=== PATIENT | male | born 2000 | race Hispanic/Latino ===

== ENCOUNTER 2024-02-28 23:13 | Emergency (ER) | payer OTHER ==
[2024-02-28] MEDS ORDERED: LIDOCAINE 2% W/EPI 1:200,000 MPF 20 ML VIAL IM ONE (23:49)
[2024-02-28] MEDS ORDERED: TDAP (DIPHTH,PERTUSS(ACELL),TET VAC) 0.5 ML VIAL IMVAC ONE (23:50)
--- NOTE | 2024-02-29 01:48 | ER ---
Nurse's Notes [facility] Name: Delio Jaramillo Age: 24 yrs Sex: Male : 2000 Arrival Date: 02/28/2024 Time: 23:13 Bed 12 Private MD: Diagnosis: Laceration without foreign body of right wrist Presentation: 02/27 23:22 Chief complaint: Patient states: Laceration to right wrist. Pt states that he cut his cm10 wrist on some glass around 1840. Bleeding controlled at this time. pt reports numbness and tingling to 4th and 5th digit. Coronavirus screen: Client denies travel out of the [place] in the last 14 days. At this time, the client does not indicate any symptoms associated with coronavirus-19. Ebola Screen: Patient denies travel to an Ebola-affected area in the 21 days before illness onset. No symptoms or risks identified at this time. Complicating Factors: There are no complicating factors for this patient. Initial Sepsis Screen: Does the patient meet any 2 criteria? No. Patient's initial sepsis screen is negative. Does the patient have a suspected source of infection? No. Patient's initial sepsis screen is negative. Risk Assessment: Do you want to hurt yourself or someone else? Patient reports no desire to harm self or others. Onset of symptoms was February 28, 2024. 23:22 Method Of Arrival: Law Enforcement: [place] [employer] cm10 23:22 Acuity: FRANKY 4 cm10 Triage Assessment: 23:25 General: Appears in no apparent distress. comfortable, Behavior is calm, cooperative. cm10 Pain: Complains of pain in medial aspect of right hand. Neuro: No deficits noted. Level of Consciousness is awake, alert, obeys commands, Oriented to person, place, time, situation, Appropriate for age. Respiratory: No deficits noted. Airway is patent Respiratory effort is even, unlabored, Respiratory pattern is regular, symmetrical. Injury Description: Laceration sustained to medial aspect of right hand is 2.6 to 7.5 cm long, not bleeding. Historical: - Allergies: 23:25 SHELLFISH; cm10 - Home Meds: 23:25 None [Active]; cm10 - PMHx: 23:25 None; cm10 - PSHx: 23:25 None; cm10 - Immunization history:: Adult Immunizations up to date. - Infectious Disease History:: Denies. - Social history:: Smoking status: Patient denies any tobacco usage or history of. Screenin:26 [facility] ED Fall Risk Assessment (Adult) History of falling in the last 3 months, cm10 including since admission No falls in past 3 months (0 pts) Confusion or Disorientation No (0 pts) Intoxicated or Sedated No (0 pts) Impaired Gait No (0 pts) Mobility Assist Device Used No (0 pt) Altered Elimination No (0 pt) Score/Fall Risk Level 0 - 2 = Low Risk Oriented to surroundings, Maintained a safe environment, Hourly rounding (assess needs \T\ fall precautionary measures) done. Abuse screen: Denies threats or abuse. Denies injuries from another. Nutritional screening: No deficits noted. Tuberculosis screening: No symptoms or risk factors identified. Vital Signs: 23:22 BP 107 / 70; Pulse 58; Resp 16; Temp 99; Pulse Ox 97% ; Weight 92.99 kg; Height 6 ft. 2 cm10 in. ; Pain 10/10; 23:22 Body Mass Index 26.32 (92.99 kg, 187.96 cm) cm10 23:22 Pain Scale: Adult cm10 ED Course: 23:20 Patient arrived in ED. cm10 23:25 Triage completed. cm10 23:26 Arm band placed on Patient placed in an exam room, on a stretcher. cm10 23:27 Russ Sloan PA is PHCP. cp 23:27 Brigitte Poole MD is Attending Physician. cp 23:27 Patient has correct armband on for positive identification. Bed in low position. Call cm10 light in reach. Side rails up X 1. Provided Education on: ER process and procedures.. Pulse ox on. NIBP on. 02/28 00:43 XRAY Hand RIGHT 3 View In Process Unspecified. EDMS 02:25 No provider procedures requiring assistance completed. Patient did not have IV access vc1 during this emergency room visit. Administered Medications: 02/27 23:58 Drug: Boostrix Tdap IM 0.5 ml IM once; as a single dose Route: IM; Site: left deltoid; cm10 23:59 Follow up: Response: (VIS) Vaccine information sheet provided today. Questions and/or cm10 concerns addressed. VIS edition date: Mar 27, 2021. Medication: 23:59 Vaccine Information Statement (VIS) provided today. Questions and/or concerns cm10 addressed. VIS edition date: March 27, 2021. Outcome: 02/28 01:47 Discharge ordered by . derrek 02:26 Discharged to [facility] unit vc1 02:26 Condition: good 02:26 Discharge instructions given to patient, Instructed on discharge instructions, follow up and referral plans. medication usage, Demonstrated understanding of instructions, follow-up care, medications, Prescriptions given X 2, 02:26 Patient left the ED. vc1 Signatures: Dispatcher [employer] EDMS Russ Sloan PA PA cp Calcote, Vanessa RN RN vc1 Kimmy Spivey RN RN cm10 Corrections: (The following items were deleted from the chart) 02/27 23:25 23:25 Allergies: No Known Allergies; cm10 cm10
--- NOTE | 2024-02-29 01:48 | EDPHYS ---
Physician Documentation [facility] Name: Delio Jaramillo Age: 24 yrs Sex: Male : 2000 Arrival Date: 02/28/2024 Time: 23:13 Bed 12 Private MD: ED Physician Brigitte Poole HPI: 02/27 23:45 This 24 yrs old Male presents to ER via Law Enforcement with complaints of cp Laceration. 23:45 The patient or guardian complains of a laceration, irregular. The complaints affect the cp right wrist. Context: resulted from sharp edge of glass. 23:45 Onset: The symptoms/episode began/occurred today, about 1830. Treatment prior to cp arrival includes: applying pressure to the affected area. Associated signs and symptoms: Pertinent positives: numbness, of the right fourth and fifth fingers, Pertinent negatives: decreased range of motion. Historical: - Allergies: 23:25 SHELLFISH; cm10 - Home Meds: 23:25 None [Active]; cm10 - PMHx: 23:25 None; cm10 - PSHx: 23:25 None; cm10 - Immunization history:: Adult Immunizations up to date. - Infectious Disease History:: Denies. - Social history:: Smoking status: Patient denies any tobacco usage or history of. ROS: 23:50 MS/extremity: Positive for laceration, of the radial side of right wrist, numbness of cp right fourth and fifth fingers, Negative for decreased range of motion, 23:50 Constitutional: HX per HPI cp 23:50 Constitutional: Negative for body aches, chills, fever, poor PO intake, 23:50 Cardiovascular: Negative for chest pain, 23:50 Respiratory: Negative for cough, shortness of breath, wheezing, 23:50 Abdomen/GI: Negative for abdominal pain, nausea, vomiting, and diarrhea, 23:50 All other systems are negative, Exam: 23:55 Constitutional: The patient appears in no acute distress, alert, awake, comfortable, cp well developed, well nourished, 23:55 Head/Face: Normocephalic, atraumatic. cp 23:55 Chest/axilla: Inspection: normal, 23:55 Cardiovascular: Rate: bradycardic, 23:55 Respiratory: the patient does not display signs of respiratory distress, Respirations: normal, no use of accessory muscles, no retractions, 23:55 Musculoskeletal/extremity: Extremities: noted in the radial side of right wrist: laceration, mild numbness noted distal tips of right fourth and fifth fingers, wound explored and no foreign bodies, no signs of tendon injury, full active ROM right hand, Vital Signs: 23:22 BP 107 / 70; Pulse 58; Resp 16; Temp 99; Pulse Ox 97% ; Weight 92.99 kg; Height 6 ft. 2 cm10 in. ; Pain 05/31; 23:22 Body Mass Index 26.32 (92.99 kg, 187.96 cm) cm10 23:22 Pain Scale: Adult cm10 Laceration: 02/28 02:00 Wound Repair of 6cm ( 2.4in ) subcutaneous laceration to radial side of right wrist. cp Irregularly shaped.. Distal neuro/vascular/tendon intact. Anesthesia: Wound infiltrated with 8 mls of 2% lidocaine. Wound prep: Moderate cleansing by me, Wound irrigation by me. Skin closed with 9 4-0 Prolene using interrupted sutures and sterile technique. Dressed with Bacitracin, 4x4's. Patient tolerated well. MDM: 02/27 23:27 Patient medically screened. 02/28 00:00 Differential diagnosis: artery injury, tendon injury, open fracture, foreign body, cp simple laceration. 01:47 Data reviewed: vital signs, nurses notes, radiologic studies, plain films. 01:47 I considered the following discharge prescriptions or medication management in the emergency department Medications were administered in the Emergency Department. See MAR. Independent interpretation of the following test(s) in the Emergency Department X-Ray: My interpretation is images of right hand negative for fracture and/or foreign body. Counseling: I had a detailed discussion with the patient and/or guardian regarding the historical points, exam findings, and any diagnostic results supporting the discharge/admit diagnosis, radiology results, the need for outpatient follow up, a family practitioner, to return to the emergency department if symptoms worsen or persist or if there are any questions or concerns that arise at home. Response to treatment: the patient's symptoms have markedly improved after treatment, and as a result, I will discharge patient. 02/27 23:34 Order name: XRAY Hand RIGHT 3 View 02/27 23:34 Order name: Dressing - Wound; Complete Time: 02:15 02/27 23:34 Order name: Gloves, Sterile; Complete Time: 02:15 cp 02/27 23:34 Order name: Setup Suture Tray; Complete Time: 02:15 cp 02/28 01:45 Order name: Wound dressing; Complete Time: 02:15 cp Administered Medications: 02/27 23:58 Drug: Boostrix Tdap IM 0.5 ml IM once; as a single dose Route: IM; Site: left deltoid; cm10 23:59 Follow up: Response: (VIS) Vaccine information sheet provided today. Questions and/or cm10 concerns addressed. VIS edition date: Mar 27, 2021. Disposition Summary: 02/29/24 01:47 Discharge Ordered Notes: Location: Home cp Problem: new cp Symptoms: have improved cp Condition: Stable cp Diagnosis - Laceration without foreign body of right wrist cp Followup: cp - With: Private Physician - When: 10 - 14 days - Reason: Staple/Suture removal Discharge Instructions: - Discharge Summary Sheet cp - Laceration Care, Adult cp - Sutured Wound Care cp Forms: - Medication Reconciliation Form cp - Antibiotic Education cp - Prescription Opioid Use cp - Patient Portal Instructions cp - Leadership Thank You Letter cp Prescriptions: - Cephalexin 500 mg Oral Capsule - take 1 capsule ORAL route every 8 hours for 10 days; 30 capsule; Refills: 0, cp Product Selection Permitted - Ibuprofen 800 mg Oral Tablet - take 1 tablet ORAL route every 8 hours As needed take with food; 30 tablet; cp Refills: 0, Product Selection Permitted Signatures: Dispatcher [employer] EDME Russ Sloan PA PA cp Martinez, Clarissa RN RN cm10 Corrections: (The following items were deleted from the chart) 23:25 23:25 Allergies: No Known Allergies; cm10 cm10
[2024-02-29 04:24] VITALS: BP 107/70; TEMP 99; O2SAT 97
--- NOTE | 2024-02-29 12:47 | RAD REPORT ---
EXAM DESCRIPTION: RAD - Hand Right 3 View - 02/29/2024 12:41 am CLINICAL HISTORY: 24 years Male, injury TECHNIQUE: 3 views of the right hand were obtained. COMPARISON: None available FINDINGS: No acute fracture, dislocation, or radiopaque foreign body. There is irregularity of the u lnar aspect of the right wrist level of the carpal bones, which can be seen with soft tissue injury. Incidental 4mm capitate cystic lucency within sclerotic margin. IMPRESSION: 1. No fracture. Electronically signed by: Juan Carlos Moncada MD 02/29/2024 01:00 AM CDT RP Due to temporary technical issues with the PACS/Fluency reporting system, reports are being signed by the in house radiologist without review as a courtesy to ensure prompt reporting. The interpreting r adiologist is fully responsible for the content of the report.
== END 2024-02-29 02:26 | disposition home or self-care (01) ==
LOC: ER 23:13
PROC: 0HQDXZZ Repair Right Lower Arm Skin, External Approach (ICD-10-PCS; principal; 2024-02-29)
DX: S61.511A Laceration without foreign body of right wrist, initial encounter (principal)
CPT/HCPCS: 96372; 99284